=== PATIENT | female | born 1960 | race Caucasian/White ===

== ENCOUNTER → 2024-03-26 15:45 | Outpatient (REF) | payer OTHER, SELFPAY | LOC: WDC 15:45 | PROVIDERS: ATTENDING PHYSICIAN Obstetrics & Gynecology | DX: Z12.31 Encounter for screening mammogram for malignant neoplasm of breast (principal) | CPT/HCPCS: 77063; 77067 ==

== ENCOUNTER 2024-12-17 06:26 | Day surgery (SDC) | payer OTHER, SELFPAY | END 2024-12-17 12:16 | disposition home or self-care (01) | LOC: GI 06:26 | PROVIDERS: ATTENDING PHYSICIAN Specialist | DX: R10.13 Epigastric pain (principal); K31.89 Other diseases of stomach and duodenum; K29.70 Gastritis, unspecified, without bleeding; K31.A11 Gastric intestinal metaplasia without dysplasia, involving the antrum | CPT/HCPCS: 43239; 88305; 88342 ==

== ENCOUNTER 2025-02-15 06:19 | Day surgery (SDC) | payer OTHER, SELFPAY ==
[2025-02-15 10:25] VITALS: BMI 23.2
[2025-02-15 10:26] VITALS: BP 140/90; BMI 23.2
[2025-02-15 14:51] VITALS: BP 109/57
[2025-02-15 14:56] VITALS: BP 109/65
[2025-02-15 15:00] VITALS: BP 115/72
[2025-02-15 15:15] VITALS: BP 118/77
[2025-02-15 15:31] VITALS: BP 138/83
== END 2025-02-15 16:00 | disposition home or self-care (01) ==
LOC: SDS 06:19
PROVIDERS: ATTENDING PHYSICIAN Obstetrics & Gynecology
DX: N85.00 Endometrial hyperplasia, unspecified (principal); N88.2 Stricture and stenosis of cervix uteri
CPT/HCPCS: 58120

== ENCOUNTER → 2025-03-28 09:00 | Outpatient (REF) | payer OTHER, SELFPAY | LOC: HWWDC 09:00 | PROVIDERS: ATTENDING PHYSICIAN Obstetrics & Gynecology; FAMILY PHYSICIAN Nurse Practitioner Family | DX: Z12.31 Encounter for screening mammogram for malignant neoplasm of breast (principal) | CPT/HCPCS: 77063; 77067 ==

== ENCOUNTER → 2025-04-06 09:42 | Outpatient (REF) | payer OTHER, SELFPAY | LOC: MRI 3T 09:42 | PROVIDERS: ATTENDING PHYSICIAN Obstetrics & Gynecology Gynecologic Oncology; FAMILY PHYSICIAN Nurse Practitioner Family | DX: R93.5 Abnormal findings on diagnostic imaging of other abdominal regions, including retroperitoneum (principal); N88.2 Stricture and stenosis of cervix uteri; N83.202 Unspecified ovarian cyst, left side | CPT/HCPCS: 72197; A9575 ==